=== PATIENT | female | born 1985 | race Caucasian/White ===

== ENCOUNTER 2018-08-06 09:18 | Inpatient (IN) | payer OTHER ==
[~2018-08-06] VITALS: Ht 167.6 cm; Wt 86.8 kg
[2018-08-06] MEDS ORDERED: LIDOCAINE 1%, 20ML ONE (09:23)
[2018-08-06] MEDS ORDERED: MISOPROSTOL 200 MCG TABLET ONE (09:23)
[2018-08-06] MEDS ORDERED: NEWBORN KIT ONE (09:23)
[2018-08-06] MEDS: OXYTOCIN 30U/ 0.9% NaCL 500ML 500 ML IV SCH ×2 (09:43→19:43)
[2018-08-06] MEDS ORDERED: OXYTOCIN 30U/ 0.9% NaCL 500ML 500 ML IV ONE (09:53)
[2018-08-06] MEDS ORDERED: LACTATED RINGERS 1,000 ML IV SCH (09:53)
[2018-08-06] MEDS ORDERED: D5%-LACTATED RINGERS 1,000 ML IV SCH (09:53)
[2018-08-06] MEDS ORDERED: CALCIUM CARBONATE 500 MG TAB.CHEW PO PRN (10:00)
[2018-08-06] MEDS ORDERED: CARBOPROST TROMETHAMINE 250 MCG/ML, 1ML IM PRN (10:00)
[2018-08-06] MEDS ORDERED: OXYcodone/APAP 5/325MG TABLET PO PRN ×2 (10:00)
[2018-08-06] MEDS ORDERED: DOCUSATE 100 MG CAPSULE PO PRN (10:00)
[2018-08-06] MEDS ORDERED: METOCLOPRAMIDE 5 MG/ML, 2ML IV PRN (10:00)
[2018-08-06] MEDS ORDERED: METHYLERGONOVINE 0.2 MG/ML IM PRN (10:00)
[2018-08-06] MEDS ORDERED: ACETAMINOPHEN 325 MG TABLET PO PRN ×3 (10:00)
[2018-08-06] MEDS ORDERED: DIPH,PERTUSS(ACELL),TET VAC/PF NC IM-VACC PRN (10:00)
[2018-08-06] MEDS ORDERED: MISOPROSTOL 200 MCG TABLET PR PRN (10:00)
[2018-08-06] MEDS ORDERED: FENTANYL PF 100 MCG/2ML IV PRN (10:00)
[2018-08-06] MEDS ORDERED: ONDANSETRON 2MG/ML, 2ML IV PRN (10:00)
[2018-08-06] MEDS ORDERED: PLEASE ENTER HEIGHT AND WEIGHT MC SCH (10:00)
[2018-08-06] MEDS ORDERED: FENTANYL PF 100 MCG/2ML IVPush PRN (10:00)
[2018-08-06] MEDS ORDERED: RHOGAM FROM BLOOD BANK 1 NOTE EA IM/IV ONE (10:00)
[2018-08-06] MEDS ORDERED: OXYTOCIN 10 UNITS/ML, 1ML IM PRN (10:00)
[2018-08-06] MEDS ORDERED: GLYCERIN ADULT SUPP PR PRN (10:00)
[2018-08-06] MEDS ORDERED: BISACODYL 10 MG SUPP PR PRN (10:00)
[2018-08-06] MEDS ORDERED: IBUPROFEN 600 MG TABLET PO PRN (10:00)
[2018-08-06 10:31] LABS: BASOPHILS % (AUTO) 0 % (0-1); EOSINOPHILS % (AUTO) 0 % (1-7); LYMPHOCYTES # (AUTO) 0.92 x10^3/uL (1-3.4); LYMPHOCYTES % (AUTO) 6 % (22-44); MD NO; MEAN CORPUSCULAR HGB CONC 34.3 g/dL (32.4-35.8); MEAN CORPUSCULAR VOLUME 93.3 fL (80-100); MEAN PLATELET VOLUME 7.6 fL (7.4-10.4); MONOCYTES # (AUTO) 0.35 x10^3/uL (0.2-0.8); MONOCYTES % (AUTO) 2 % (2-9); NEUTROPHILS % (AUTO) 92 % (42-75); PLATELET COUNT 337 x10^3/uL (130-400); RED BLOOD COUNT 4.14 x10^6/uL (3.82-5.3); RED CELL DISTRIBUTION WIDTH 12.5 % (9.6-15.2)
[2018-08-06 10:45] LABS: ALANINE AMINOTRANSFERASE 29 U/L (12-78); ALBUMIN 2.3 g/dL (3.4-5.0); ANION GAP 6 mmol/L (5-15); CALCIUM 7.9 mg/dL (8.5-10.1); CHLORIDE 113 mmol/L (98-107); CREATININE 0.59 mg/dL (0.55-1.02)
[2018-08-06 10:50] LABS: ALKALINE PHOSPHATASE 125 U/L (45-117); BILIRUBIN, DIRECT 0.1 mg/dL (0.1-0.2); BILIRUBIN,TOTAL 0.5 mg/dL (0.2-1.0)
[2018-08-06 12:17] VITALS: BP 124/80
[2018-08-06 12:36] LABS: MICROSCOPIC INDICATED
[2018-08-06 15:51] VITALS: BP 127/78
[2018-08-06 17:03] LABS: BASOPHILS # (AUTO) 0.03 x10^3/uL (0-0.1); BASOPHILS % (AUTO) 0 % (0-1); EOSINOPHILS # (AUTO) 0.01 x10^3/uL (0-0.4); EOSINOPHILS % (AUTO) 0 % (1-7); LYMPHOCYTES # (AUTO) 1.42 x10^3/uL (1-3.4); LYMPHOCYTES % (AUTO) 11 % (22-44); MD NO; MEAN CORPUSCULAR HEMOGLOBIN 31.9 pg (27.0-34.8); MEAN CORPUSCULAR HGB CONC 34.7 g/dL (32.4-35.8); MEAN CORPUSCULAR VOLUME 91.9 fL (80-100); MEAN PLATELET VOLUME 7.9 fL (7.4-10.4); MONOCYTES # (AUTO) 0.73 x10^3/uL (0.2-0.8); MONOCYTES % (AUTO) 6 % (2-9); NEUTROPHILS # (AUTO) 10.97 x10^3/uL (1.8-6.8); NEUTROPHILS % (AUTO) 83 % (42-75); PLATELET COUNT 354 x10^3/uL (130-400); RED BLOOD COUNT 3.91 x10^6/uL (3.82-5.3); RED CELL DISTRIBUTION WIDTH 12.6 % (9.6-15.2)
[2018-08-06 20:25] VITALS: BP 127/82
[2018-08-06] MEDS ORDERED: MEASLES,MUMPS&RUBELLA VACC/PF 0.5 ML SQ-VACC ONE (21:30)
[2018-08-07 00:45] VITALS: BP 119/75
[2018-08-07 04:06] VITALS: BP 120/80
[2018-08-07] MEDS: OXYTOCIN 30U/ 0.9% NaCL 500ML 500 ML IV SCH ×2 (05:43→20:05)
[2018-08-07 08:00] VITALS: BP 112/73
[2018-08-07 20:05] VITALS: BP 121/84
[2018-08-07] MEDS: PRENATAL VIT/IRON/FA 1 EACH TABLET PO SCH (22:14)
[2018-08-08] MEDS: OXYTOCIN 30U/ 0.9% NaCL 500ML 500 ML IV SCH ×2 (01:43→11:43)
[2018-08-08 07:20] VITALS: BP 119/83
[2018-08-08] MEDS: PRENATAL VIT/IRON/FA 1 EACH TABLET PO SCH (07:41)
[2018-08-08] MEDS ORDERED: IBUP-1222 PO (08:44)
== END 2018-08-08 14:20 | disposition home or self-care (01) | DRG 807 ==
LOC: LDOP 09:18 → LDIP 09:26 → 2NW 12:02
PROVIDERS: ADMIT Obstetrics & Gynecology; ATTEND Obstetrics & Gynecology
PROC: 10E0XZZ Delivery of Products of Conception, External Approach (ICD-10-PCS; principal; 2018-08-06)
PROC: 0UQMXZZ Repair Vulva, External Approach (ICD-10-PCS; 2018-08-06)
PROC: 0T9B70Z Drainage of Bladder with Drainage Device, Via Natural or Artificial Opening (ICD-10-PCS; 2018-08-06)
PROC: 3E0234Z Introduction of Serum, Toxoid and Vaccine into Muscle, Percutaneous Approach (ICD-10-PCS; 2018-08-06)
DX: O69.0XX0 Labor and delivery complicated by prolapse of cord, not applicable or unspecified (principal); Z37.0 Single live birth; O70.0 First degree perineal laceration during delivery; Z3A.37 37 weeks gestation of pregnancy; Z67.41 Type O blood, Rh negative
CPT/HCPCS: 36415; 80053; 81001; 82248; 82570; 84156; 84550; 85025; 85461; 86850; 86900; G0378; J2790

== ENCOUNTER 2019-12-25 05:11 | Inpatient (IN) | payer OTHER ==
[~2019-12-25 05:11] MED LIST: IBUP-1222 PO
== END 2019-12-25 07:31 | disposition home or self-care (01) | DRG 833 ==
LOC: LDIP 05:11
PROVIDERS: ADMIT Obstetrics & Gynecology; ATTEND Obstetrics & Gynecology
DX: O48.0 Post-term pregnancy (principal); Z3A.40 40 weeks gestation of pregnancy; Z20.828 Contact with and (suspected) exposure to other viral communicable diseases
CPT/HCPCS: 36415; 59025; 87635; G0378

== ENCOUNTER 2019-12-28 06:08 | Inpatient (IN) | payer OTHER ==
[~2019-12-28] VITALS: Ht 167.6 cm; Wt 91.0 kg
[2019-12-28] MEDS ORDERED: NEWBORN KIT ONE (07:20)
[2019-12-28] MEDS ORDERED: LIDOCAINE 1%, 20ML ONE (07:20)
[2019-12-28] MEDS ORDERED: MISOPROSTOL 200 MCG TABLET ONE (07:21)
[2019-12-28] MEDS ORDERED: OXYTOCIN 30U/ 0.9% NaCL 500ML 500 ML ONE ×2 (07:21→10:36)
[2019-12-28] MEDS ORDERED: LACTATED RINGERS 1,000 ML IV SCH (07:28)
[2019-12-28] MEDS ORDERED: D5%-LACTATED RINGERS 1,000 ML IV SCH (07:28)
[2019-12-28] MEDS ORDERED: OXYTOCIN 30U/ 0.9% NaCL 500ML 500 ML IV ONE (07:28)
[2019-12-28] MEDS ORDERED: TERBUTALINE 1 MG/ML, 1ML IVPush PRN (07:30)
[2019-12-28] MEDS ORDERED: FENTANYL PF 100 MCG/2ML IVPush PRN (07:30)
[2019-12-28] MEDS ORDERED: ONDANSETRON 2MG/ML, 2ML IVPush PRN (07:30)
[2019-12-28] MEDS ORDERED: FENTANYL PF 100 MCG/2ML IV PRN (07:30)
[2019-12-28] MEDS ORDERED: TERBUTALINE 1 MG/ML, 1ML SQ PRN (07:30)
[2019-12-28] MEDS ORDERED: PREN1TAB60 PO (07:49)
[2019-12-28 07:51] VITALS: BP 127/80
[2019-12-28 08:08] LABS: BASOPHILS # (AUTO) 0.01 x10^3/uL (0-0.1); BASOPHILS % (AUTO) 0 % (0-1); EOSINOPHILS # (AUTO) 0.05 x10^3/uL (0-0.4); EOSINOPHILS % (AUTO) 1 % (1-7); LYMPHOCYTES # (AUTO) 1.63 x10^3/uL (1-3.4); LYMPHOCYTES % (AUTO) 18 % (22-44); MD NO; MEAN CORPUSCULAR HGB CONC 33.6 g/dL (32.4-35.8); MEAN CORPUSCULAR VOLUME 95.4 fL (80-100); MEAN PLATELET VOLUME 8.9 fL (7.4-10.4); MONOCYTES # (AUTO) 0.43 x10^3/uL (0.2-0.8); MONOCYTES % (AUTO) 5 % (2-9); NEUTROPHILS # (AUTO) 6.96 x10^3/uL (1.8-6.8); NEUTROPHILS % (AUTO) 77 % (42-75); PLATELET COUNT 220 x10^3/uL (130-400); RED BLOOD COUNT 4.03 x10^6/uL (3.82-5.3); RED CELL DISTRIBUTION WIDTH 12.9 % (9.6-15.2)
[2019-12-28] MEDS ORDERED: CARBOPROST TROMETHAMINE 250 MCG/ML, 1ML IM PRN (09:30)
[2019-12-28] MEDS ORDERED: OXYcodone/APAP 5/325MG TABLET PO PRN (09:30)
[2019-12-28] MEDS ORDERED: ONDANSETRON 2MG/ML, 2ML IV PRN (09:30)
[2019-12-28] MEDS ORDERED: MISOPROSTOL 200 MCG TABLET PR PRN (09:30)
[2019-12-28] MEDS ORDERED: METHYLERGONOVINE 0.2 MG/ML IM PRN (09:30)
[2019-12-28] MEDS ORDERED: DOCUSATE 100 MG CAPSULE PO PRN (09:30)
[2019-12-28] MEDS ORDERED: SIMETHICONE 80 MG CHEW TAB PO PRN (09:30)
[2019-12-28] MEDS ORDERED: IBUPROFEN 600 MG TABLET ONE (09:33)
[2019-12-28] MEDS ORDERED: IBUPROFEN 800 MG TABLET ONE (09:37)
[2019-12-28] MEDS: IBUPROFEN 800 MG TABLET PO PRN ×2 (09:39→20:32)
[2019-12-28] MEDS ORDERED: DEXTROSE 47%, 15GM GEL ONE (10:21)
[2019-12-28] MEDS: OXYTOCIN 30U/ 0.9% NaCL 500ML 500 ML IV SCH ×2 (10:59→19:26)
[2019-12-28 11:33] VITALS: BP 124/80
[2019-12-28] MEDS: OXYcodone/APAP 5/325MG TABLET PO PRN ×2 (12:43→20:32)
[2019-12-28 16:00] VITALS: BP 134/87
[2019-12-28 17:24] LABS: MEAN CORPUSCULAR HEMOGLOBIN 32.5 pg (27.0-34.8); MEAN CORPUSCULAR HGB CONC 34.4 g/dL (32.4-35.8); MEAN CORPUSCULAR VOLUME 94.5 fL (80-100); PLATELET COUNT 253 x10^3/uL (130-400); RED BLOOD COUNT 3.63 x10^6/uL (3.82-5.3); RED CELL DISTRIBUTION WIDTH 12.8 % (9.6-15.2)
[2019-12-28 17:33] LABS: BASOPHILS # (AUTO) 0.03 x10^3/uL (0-0.1); BASOPHILS % (AUTO) 0 % (0-1); EOSINOPHILS # (AUTO) 0.02 x10^3/uL (0-0.4); EOSINOPHILS % (AUTO) 0 % (1-7); LYMPHOCYTES # (AUTO) 1.51 x10^3/uL (1-3.4); LYMPHOCYTES % (AUTO) 12 % (22-44); MD SCAN; MONOCYTES # (AUTO) 0.38 x10^3/uL (0.2-0.8); MONOCYTES % (AUTO) 3 % (2-9); NEUTROPHILS # (AUTO) 10.37 x10^3/uL (1.8-6.8); NEUTROPHILS % (AUTO) 84 % (42-75)
[2019-12-28 19:53] VITALS: BP 123/80
[2019-12-29 00:35] VITALS: BP 107/71
[2019-12-29] MEDS: OXYcodone/APAP 5/325MG TABLET PO PRN (02:58)
[2019-12-29] MEDS ORDERED: RHOGAM FROM BLOOD BANK 1 NOTE EA IM/IV ONE (03:00)
[2019-12-29 03:45] VITALS: BP 100/65
[2019-12-29] MEDS: IBUPROFEN 800 MG TABLET PO PRN ×2 (04:11→12:21)
[2019-12-29] MEDS: OXYTOCIN 30U/ 0.9% NaCL 500ML 500 ML IV SCH (05:26)
[2019-12-29 08:25] VITALS: BP 111/72
[2019-12-29] MEDS ORDERED: PRENATAL VIT/IRON/FA 1 EACH TABLET PO SCH (09:00)
[2019-12-29] MEDS ORDERED: DOCU-131 PO (11:41)
[2019-12-29] MEDS ORDERED: IBUP-1223 PO (11:41)
== END 2019-12-29 12:48 | disposition home or self-care (01) | DRG 807 ==
LOC: LDIP 06:08 → 2NW 11:10
PROVIDERS: ADMIT Obstetrics & Gynecology; ATTEND Obstetrics & Gynecology
PROC: 10E0XZZ Delivery of Products of Conception, External Approach (ICD-10-PCS; principal; 2019-12-28)
PROC: 10907ZC Drainage of Amniotic Fluid, Therapeutic from Products of Conception, Via Natural or Artificial Opening (ICD-10-PCS; 2019-12-28)
PROC: 30233S1 Transfusion of Nonautologous Globulin into Peripheral Vein, Percutaneous Approach (ICD-10-PCS; 2019-12-29)
DX: O70.0 First degree perineal laceration during delivery (principal); Z37.0 Single live birth; Z3A.40 40 weeks gestation of pregnancy
CPT/HCPCS: 36415; 85025; 85461; 86592; 86850; 86900; G0378; J2790; J2590; J7120